=== PATIENT | female | born 1930 | race Caucasian/White ===

== ENCOUNTER → 2017-06-10 | Day surgery (SDC) | payer MEDICARE, OTHER ==
[~2017-06-10] MED LIST: ACET650T67 PO; ASPI81 PO; ASPI81CH CHEW; BROM500T PO; BUPIVACAINE HCL PF 0.25% 30 ML VIAL INFIL ONE; BUPIVACAINE HCL PF 0.5% 30 ML VIAL ONE; CALC600T4 PO; CALTTAB5 PO; CHOL1CAP34 PO; CHOL50006 PO; CO Q100C7 PO; CYAN1000P IM; EXFO10TA2 PO; HYDR-3580 PO; LEVO.1 PO; MAGN400 PO; MULTTAB67 PO; ONDANSETRON HCL 4 MG/2 ML VIAL IV PUSH ONE; PROPOFOL 200 MG/20 ML AMP IV ONE; SYNT88TA PO; TAB-TAB PO; TRIAMCINOLONE ACETONIDE 40 MG/ML VIAL I-ARTICULR ONE; VALS1TAB64 PO; [UNRECOGNIZED DRUG - CODE] PO; methylPREDNISolone ACETATE 40 MG/ML VIAL I-ARTICULR ONE
--- NOTE | 2017-06-11 23:07 | M6 ---
cc: Aarti SYKES DATE 06/10/2017 1930 PROCEDURE Fluoroscopically guided injection bilateral sacroiliac joints. History and physical was completed and signed. Consent was signed. Procedure site was marked. Medications were listed and reconciled. Pain score was recorded. Allergies were noted. Time out was taken. Fluoroscopy time was recorded where applicable. Sedation was administered or directed by Dr. Sykes. The patient was given oxygen. The patient was monitored by a registered nurse. Total procedure time was greater than 15 minutes. IV was started, blood pressure cuff, pulse oximeter and EKG were applied. The patient was placed in the prone position on a Ward table sedated with small amounts of propofol titrated to effect. Vital signs were monitored and remained stable throughout the procedure. Sacral area was prepped with alcohol and 10% Betadine solution and draped with sterile drapes. Fluoroscopy was used shooting from medial to lateral to clearly visualize the posterior joint line of the bilateral sacroiliac joints. 5-inch 22-gauge spinal needles were advanced into these joints under fluoroscopic guidance. There was negative aspiration for blood or any other type of fluid. At each location, the patient was given 2 mL of 0.5% Marcaine, 20 mg of Depo-Medrol, 20 mg of Kenalog. Following the procedure, the patient was taken to the recovery room with stable vital signs neurologically intact. MD IRA Guadarrama/ /9:32 AM /11:09 PM
== END | disposition home or self-care (01) ==
LOC: PHSDC 07:49
PROVIDERS: ATTEND Pain Medicine Interventional Pain Medicine
DX: M54.5 Low back pain (principal)
CPT/HCPCS: 99152; G0260; J1030; J3301; 27096; J2405

== ENCOUNTER 2017-06-19 10:41 | Emergency (ER) | payer MEDICARE, OTHER ==
[~2017-06-19] VITALS: Ht 165.1 cm; Wt 75.0 kg
[~2017-06-19 10:41] MED LIST changes: -ASPI81 PO; -BROM500T PO; -BUPIVACAINE HCL PF 0.25% 30 ML VIAL INFIL ONE; -BUPIVACAINE HCL PF 0.5% 30 ML VIAL ONE; -CALTTAB5 PO; -CHOL50006 PO; -CO Q100C7 PO; -CYAN1000P IM; -EXFO10TA2 PO; -LEVO.1 PO; -MAGN400 PO; -ONDANSETRON HCL 4 MG/2 ML VIAL IV PUSH ONE; -PROPOFOL 200 MG/20 ML AMP IV ONE; -TAB-TAB PO; -TRIAMCINOLONE ACETONIDE 40 MG/ML VIAL I-ARTICULR ONE; -[UNRECOGNIZED DRUG - CODE] PO; -methylPREDNISolone ACETATE 40 MG/ML VIAL I-ARTICULR ONE
[2017-06-19 10:48] VITALS: BP 177/77; PULSE 99; RESP 14; TEMP 98.6; O2SAT 99
[2017-06-19] MEDS ORDERED: HYDR-3533 PO (11:10)
[2017-06-19] MEDS ORDERED: AMLO5TAB2 PO (11:10)
[2017-06-19] MEDS ORDERED: SENO8.6T5 PO (11:10)
[2017-06-19] MEDS ORDERED: HYDR25TA5 PO (11:10)
[2017-06-19] MEDS ORDERED: DEXAMETHASONE SOD PHOS 20 MG/5 ML VIAL IM ONE (11:15)
[2017-06-19] MEDS ORDERED: IBUPROFEN 600 MG TAB PO ONE (11:15)
[2017-06-19] MEDS ORDERED: oxyCODONE/ACETAMINOPHEN 7.5 MG/325 MG TAB PO ONE (11:15)
--- NOTE | 2017-06-19 11:27 | PD ---
HPI Chief Complaint: Pain: Acute or Chronic Time Seen by Provider: 11:05 Travel History International Travel<30 days: No Contact w/Intl Traveler<30days: No Traveled to known affect area: No History of Present Illness HPI Patient is an 86-year-old female with history of hypertension, chronic low back pain who presents to emergency room with complaints of acute on chronic low back pain as well as right knee pain. Patient reports that she has chronic low back pain, reports that she is currently being seen by Dr. Sykes and had a steroid injection on June 10, 2017. Patient reports that her low back pain always hurts, reports that she has radiation of her pain down her right leg. Reports that her pain is at baseline. Patient reports concerns as today, she began to have right-sided knee pain. Patient reports that she has had history of right-sided knee replacement by Dr. Shaw about 1 year ago. Reports that her knee never bothers her, reports that her knee has been hurting her today. She denies any falls or traumas, patient concerned that the hardware in her knee may be "broken." As per patient's low back pain, patient complains of right-sided lower paraspinal musculoskeletal pain radiating down her right leg. Patient reports that this pain is at baseline. She denies any saddle anesthesia, denies any incontinence or retention of urine or bowel. Denies any dysuria, urinary frequency or frequency. Denies any new falls or trauma to her back or knee. Patient is prescribed hydrocodone/acetaminophen 7.5 mg/325mg- reports that she has not taken this for pain as she is afraid to take his with her high blood pressure medications. PFSH Past Medical History Arthritis: Yes Cardiovascular Problems: Yes Gastrointestinal Disorders: Yes Genitourinary: No Hypertension: Yes Medical other: Yes (CHRONIC BACK PAIN) Musculoskeletal: Yes Neurologic: No Reproductive: Yes (HYSTERECTOMY) Respiratory: No Thyroid Disease: Yes Triglycerides - High: Yes Tetanus Vaccination: < 5 Years Influenza Vaccination: No ?: Not Menopausal: Yes Past Surgical History Abdominal Surgery: Yes (R ROSARIO-COLECTOMY) Cardiac Surgery: No Cholecystectomy: Yes Ear Surgery: No Endocrine Surgery: No Eye Surgery: No Genitourinary Surgery: No Gynecologic Surgery: Yes Joint Replacement: Yes (RIGHT KNEE) Oral Surgery: No Thoracic Surgery: No Other Surgery: Yes (CATERACT/TOTAL HIP) Social History Alcohol Use: Yes (SOCIAL) Tobacco Use: No Substance Use: No Allergies-Medications (Allergen,Severity, Reaction): Coded Allergies: No Known Allergies (Verified , 06/19/17) Reported Meds & Prescriptions Reported Meds & Active Scripts Active Ibuprofen 600 Mg Tab 600 Mg PO Q6H PRN Reported Lortab (Hydrocodone-Acetaminophen) 5-325 Mg Tab 1 Tab PO DIRECTED PRN Senokot (Sennosides) 8.6 Mg Tab 8.6 Mg PO DIRECTED Hydrochlorothiazide 25 Mg Tab 25 Mg PO DAILY Amlodipine (Amlodipine Besylate) 5 Mg Tab 5 Mg PO DAILY Valsartan 80 Mg Tab 80 Mg PO BID Tylenol Arthritis (Acetaminophen) 650 Mg Tablet.er 1 Tab PO PRN Vitamin D3 (Cholecalciferol) 50,000 Unit Cap 50,000 Units PO Q7D Multiple Vitamin 1 Tab 1 Tab PO DAILY Aspirin 81 Mg Chew 81 Mg CHEW DAILY Calcium Carbonate 1,500 Mg Tab 800 Mg PO BID 1,500 mg calcium carbonate (600 mg elemental calcium) Synthroid (Levothyroxine Sodium) 88 Mcg Tab 88 Mcg PO DAILY Review of Systems General / Constitutional: No: Fever Eyes: No: Visual changes HENT: No: Headaches Cardiovascular: No: Chest Pain or Discomfort Respiratory: No: Shortness of Breath Gastrointestinal: No: Abdominal Pain Genitourinary: No: Dysuria Musculoskeletal: Positive: Limited ROM (right knee), Pain (right knee) Skin: No Rash Neurologic: No: Weakness Psychiatric: No: Depression Endocrine: No: Polydipsia Hematologic/Lymphatic: No: Easy Bruising Physical Exam Narrative GENERAL: Mild distress SKIN: Focused skin assessment warm/dry. HEAD: Atraumatic. Normocephalic. NECK: Trachea midline. No JVD. CARDIOVASCULAR: Regular rate and rhythm. No murmur appreciated. RESPIRATORY: No accessory muscle use. Clear to auscultation. Breath sounds equal bilaterally. GASTROINTESTINAL: Abdomen soft, non-tender, nondistended. Hepatic and splenic margins not palpable. MUSCULOSKELETAL: No obvious deformities. No clubbing. No cyanosis. No edema. Patient with right-sided lower paraspinal muscle tenderness with sciatica, no saddle anesthesia, patient with pain with range of motion to her right knee, there is no obvious fracture, pulses intact, neurovascularly intact. Left lower extremity: Normal exam NEUROLOGICAL: Awake and alert. No obvious cranial nerve deficits. Motor grossly within normal limits. Normal speech. PSYCHIATRIC: Appropriate mood and affect; insight and judgment normal. Data Data Last Documented VS Vital Signs Date Time Temp Pulse Resp B/P Pulse Ox O2 Delivery O2 Flow Rate FiO2 06/19/17 10:48 98.6 99 14 177/77 99 Room Air Orders Knee, Complete (4vws) (06/19/17 ) Dexamethasone Inj (Decadron Inj) (06/19/17 11:15) Urinalysis - C+S If Indicated (06/19/17 11:12) Oxycodone-Acetamin 7.5-325 Mg (Percocet (06/19/17 11:15) Ibuprofen (Motrin) (06/19/17 11:15) Oxycodone-Acetamin 5-325 Mg (Percocet (06/19/17 11:30) Labs Laboratory Tests Test 06/19/17 13:20 Urine Collection Type CLEAN CATCH Urine Color YELLOW Urine Turbidity CLEAR Urine pH 5.5 Urine Specific [place] 1.017 Urine Protein NEG mg/dL Urine Glucose (UA) NEG mg/dL Urine Ketones NEG mg/dL Urine Occult Blood TRACE Urine Nitrite NEG Urine Bilirubin NEG Urine Leukocyte Esterase NEG Urine RBC 4-9 /hpf Urine WBC 0-2 /hpf Urine Squamous Epithelial 0-5 /hpf Cells Urine Amorphous Sediment FEW Microscopic Urinalysis Comment CULT NOT INDICATED Urine Collection Time 1320 MDM Medical Decision Making Medical Screen Exam Complete: Yes Emergency Medical Condition: Yes Interpretation(s) Vital Signs Date Time Temp Pulse Resp B/P Pulse Ox O2 Delivery O2 Flow Rate FiO2 06/19/17 10:48 98.6 99 14 177/77 99 Room Air Differential Diagnosis Differential includes acute on chronic low back pain with sciatica, UTI, cauda equina though unlikely, knee sprain Narrative Course 86-year-old female who presents to emergency room with complaints of acute on chronic low back pain. Patient has history of chronic right lower back pain with sciatica and is currently being treated by Dr. Sykes. Reports that she doesn't want to take her narcotic pain medications as she has been working with Dr. Tavarez (her public speaker) with lowering her blood pressure and she was concerned that the narcotic pain medications was causing her blood pressure to be high. She does report relief of pain when she takes her pain medications. Patient reports that her back pain is at baseline, reports no incontinence of urine or bowel, denies any saddle anesthesia. Patient is ambulating emergency with normal gait, there are no signs of cauda equina. Patient concerned for possible hardware malfunction to her right knee as patient complains of severe pain to her right knee at this time. Patient adamantly denies any injuries or falls or trauma to her right knee. X-ray of the right knee ordered. Plan to give patient an IM dose of steroids, will give her a dose of Percocet as well as Motrin. Patient re-evaluated, feeling better Last Impressions Knee X-Ray 06/19/17 0000 Signed Impressions: Service Date/Time: Monday, June 19, 2017 11:26 - CONCLUSION: Intact total knee arthroplasty for technique. Alley Haji MD Patient feeling better at this time. Patient will follow-up with her primary care doctor as well as her animated cartoons painter and her orthopedic surgeon , she will return to the emergency medicine needed. Diagnosis Primary Impression: Lumbago with sciatica, right side Additional Impression: Knee pain, right Qualified Code: M25.561 - Acute pain of right knee Patient Instructions: General Instructions, Narcotic given in the ED Additional Instructions: Please follow up with your primary care doctor Please follow up with your animated cartoons painter Return to ER if symptoms worsen or progress Return to ER as needed Scripts Ibuprofen 600 Mg [id number] Mg PO Q6H PRN (Pain/Inflammation) #40 TAB Ref 0 Prov:Cristina Covington DO 06/19/17 Disposition: 01 DISCHARGE HOME Condition: Stable Cristina Covington DO Jun 19, 2017 11:27
[2017-06-19] MEDS ORDERED: oxyCODONE/ACETAMINOPHEN 5 MG/325 MG TAB PO ONE (11:30)
--- NOTE | 2017-06-19 11:41 | RADRPT ---
EXAM DATE/TIME: 06/19/2017 11:26 [facility] COMPARISON: No previous studies available for comparison. INDICATIONS : Right knee pain, no known injury MEDICAL HISTORY : None. SURGICAL HISTORY : Total knee replacement, right. ENCOUNTER: Initial ACUITY: 3 days PAIN SCORE: 10/10 LOCATION: Right knee FINDINGS: Total knee arthroplasty is in place. The femoral, tibial, and patellar components appear intact. Th ere are no signs of loosening or fracture. CONCLUSION: Intact total knee arthroplasty for technique. Alley Haji MD on June 19, 2017 at 11:39 Board Certified Radiologist. This report was verified electronically.
[2017-06-19] MEDS ORDERED: IBUP-232 PO (13:25)
[2017-06-19 13:31] LABS: BLOOD, URINE TRACE (NEG); GLUCOSE,URINE NEG (NEG); KETONE, URINE NEG (NEG); NITRITE,URINE NEG (NEG); PH, URINE 5.5 (5.0-8.5)
[2017-06-19 13:40] LABS: METHOD OF COLLECTION CLEAN CATCH; URINE COLOR YELLOW (YELLW/STRAW)
[2017-06-19 13:41] LABS: COMMENT (UR) CULT NOT INDICATED; COMMENT2 (UR) MUCOUS PRESENT; CULTURE IF INDICATED CULT NOT INDICATED; SQUAMOUS EPITHELIAL CELL URINE 0-5 /hpf (0-5); WBC, URINE 0-2 /hpf (0-5)
== END 2017-06-19 14:04 | disposition home or self-care (01) ==
LOC: PHED 10:41
DX: M54.41 Lumbago with sciatica, right side (principal); M25.561 Pain in right knee; G89.29 Other chronic pain; I10 Essential (primary) hypertension; E07.9 Disorder of thyroid, unspecified; E78.1 Pure hyperglyceridemia; Z96.651 Presence of right artificial knee joint; Z87.39 Personal history of other diseases of the musculoskeletal system and connective tissue; Z86.79 Personal history of other diseases of the circulatory system; Z87.19 Personal history of other diseases of the digestive system
CPT/HCPCS: 73564; 81001; 96372; 99284; J1100

== ENCOUNTER → 2017-07-06 | Day surgery (SDC) | payer MEDICARE, OTHER ==
[~2017-07-06] MED LIST changes: +AMLO5TAB2 PO; +HYALURONIDASE HUMAN 150 UNIT/1 ML VIAL ONE; +HYDR-3533 PO; -HYDR-3580 PO; +HYDR25TA5 PO; +IBUP-232 PO; +IOHEXOL 180 MG/ML 20 ML VIAL (for RAD DIAG) EPIDURAL ONE; +LIDOCAINE HCL 1% PF 30 ML VIAL INFIL ONE; +MEPERIDINE HCL 25 MG/ML VIAL IV ONE; +PROPOFOL 200 MG/20 ML AMP IV ONE; +SENO8.6T5 PO; +SODIUM CHLORIDE 0.9% 10 ML VIAL ONE; +TRIAMCINOLONE ACETONIDE 40 MG/ML VIAL NERV BLOCK ONE
--- NOTE | 2017-07-09 13:44 | M6 ---
cc: ANNA SYKES M.D. DATE: 07/06/2017 DATE OF : 1930 PROCEDURE Fluoroscopically guided epidural adhesiolysis. History and physical was completed and signed. Consent was signed. Procedure site was marked. Medications were listed and reconciled. Pain score was recorded. Allergies were noted. Time out was taken. Fluoroscopy time was recorded where applicable. Sedation was administered or directed by Dr. Sykes. The patient was given oxygen. The patient was monitored by a registered nurse. Total procedure time was greater than 15 minutes. IV was started, blood pressure cuff, pulse oximeter and EKG were applied. The patient was placed in the prone position on a Ward table sedated with small amounts of Versed, Demerol and propofol titrated to effect. Vital signs were monitored and remained stable throughout the procedure. Sacral and coccygeal area were prepped with alcohol and 10% Betadine solution and draped with sterile drapes. Fluoroscopy was used to visualize the sacral hiatus. The skin was infiltrated with 27 gauge needle using 1% Xylocaine. Then a #11 blade was used to make a puncture site. Then a modified Tuohy needle with a plastic introducer sheath was advanced between anterior and posterior lamina of the sacrum. The Tuohy needle was removed and then a steerable now the cath then a PIC 88 inches was passed through the introducer and a cephalad direction up to the L4 and L1-5 vertebra at which point disk scar tissue was encountered. The Omnipaque dye was injected the catheter was manipulated to break up some of the scar tissue and create channels through the scar tissue. The catheter then ultimately was passed up to the L3 level and at this point the patient was given a mixture which contained normal 10 mL of normal saline 150 units of wine days 40 mg of Kenalog. Following the procedure. The question following that injection the now the cath and the introducer catheter was by removed intact. Antibiotic formal was placed over the puncture site and a Band-Aid was placed over a sterile Band-Aid was placed over that the patient that was taken to the recovery room with stable vital signs neurologically intact. W. MD IRA Jean/gerry /8:50 AM /1:37 PM
== END | disposition home or self-care (01) ==
LOC: PHSDC 06:31
PROVIDERS: ATTEND Pain Medicine Interventional Pain Medicine
DX: G96.12 Meningeal adhesions (cerebral) (spinal) (principal); M54.16 Radiculopathy, lumbar region; G62.9 Polyneuropathy, unspecified; Z98.1 Arthrodesis status
CPT/HCPCS: 62264; 99152; 99153; J2175; J3301; J3473; Q9965